=== PATIENT | male | born 1940 | race Caucasian/White ===

== ENCOUNTER → 2016-09-18 | Day surgery (SDC) | payer OTHER ==
[2016-09-08 08:22] VITALS: Ht 165.1 cm; Wt 76.8 kg
[~2016-09-18] VITALS: Ht 165.1 cm; Wt 76.8 kg
[~2016-09-18] MED LIST: ARGI500T3 PO; CHOL1000 PO; COEN90TA PO; CYAN10005 PO; LIDOCAINE HCL 2% 2 ML VIAL (20MG/ML) ONE; MULT-506 PO; PANT40TA PO; PROPOFOL IV EMULSION 10 MG/ML 20 ML VIAL IV ONE; PYRI50TA2 PO; THIA50TA3 PO
--- NOTE | 2016-09-18 12:23 | Endo History and Physical ---
History & Physical Date of Service: Sep 18, 2016. Chief Complaint: Serna's , history of polyps Referring Physician: Dr. Vicki Edgar History of Present Illness For EGD and colonoscopy Past Surgical History Hx Cardiac Surgery: Yes (HEART CATH, NO STENTS) Hx Internal Defibrillator: No Hx Pacemaker: No Hx Abdominal Surgery: Yes (HERNIA REPAIR X3) Hx of Implantable Prosthesis: No Hx Post-Op Nausea and Vomiting: No Hx Cancer Surgery: Yes (LASER FOR PROSTATE) Hx Thoracic Surgery: No Hx Orthopedic: No Hx Urinary Tract Surgery: No Family History Esophogeal CA Social History Smoking Status: Former Smoker Hx Substance Use: No Hx Alcohol Use: No ("A FEW OUNCES OF WINE 3-4 NIGHTS/WEEK") Allergies Coded Allergies: Penicillins (Verified Allergy, Unknown, RASH - HAPPENED A CHILD, ) Current Medications Reported Home Medications Medications Dose Route/Sig Max Daily Dose Days Date Category L-Arginine (Arginine) 500 Mg Tab 1 Tab PO QAM 09/08/16 Reported Multivitamin (Multivitamins) Tab 1 Tab PO QAM 09/08/16 Reported Co Q10 (Coenzyme Q10) 90 Mg Tab 1 Tab PO QAM 09/08/16 Reported Vitamin D3 (Cholecalciferol) 1,000 Unit Tab 1 Tab PO QAM 09/08/16 Reported Vitamin B-6 (Pyridoxine Hcl) 50 Mg Tab 1 Tab PO QAM 09/08/16 Reported Vitamin B-1 (Thiamine HCl) 50 Mg Tab 50 Mg PO QAM 09/08/16 Reported Vitamin B-12 (Cyanocobalamin) 1,000 Mcg Tab 1,000 Mcg PO QAM 09/08/16 Reported Protonix (Pantoprazole Sodium) 40 Mg Tab 40 Mg PO QAM 09/08/16 Reported Vital Signs Weight (Kilograms): 76.82 Height (Feet): 5 Height (Inches): 5 Date Time Temp Pulse Resp B/P (MAP) Pulse Ox O2 Delivery O2 Flow Rate FiO2 09/18/16 12:09 36.6 82 18 154/83 (106) 97 Room Air Physical Exam General Appearance: WD/WN Respiratory/Chest: Respiratory effort: no dyspnea Cardiovascular: Heart Auscultation: RRR Abdomen: Bowel Sounds: pertinent finding (LIH repair) Assessment and Plan Serna's and Hx of polyps for EGD and colonoscopy
--- NOTE | 2016-09-18 12:50 | Discharge Instructions ---
Endoscopy Patient Instructions Date / Procedure(s) Performed Sep 18, 2016. Colonoscopy, EGD Allergy Information Coded Allergies: Penicillins (Verified Allergy, Unknown, RASH - HAPPENED A CHILD, ) Discharge Date / Findings Sep 18, 2016. Serna's, esoph ulcer, diverticulosis, hemorrhoids, cecal ulcer, polyp Medication Instructions Stopped Medication(s): stopped all supplememnts on Wednesday Restart Stopped Medication(s): resume meds Reported Home Medications Medications Dose Route/Sig Max Daily Dose Days Date Category L-Arginine (Arginine) 500 Mg Tab 1 Tab PO QAM 09/08/16 Reported Multivitamin (Multivitamins) Tab 1 Tab PO QAM 09/08/16 Reported Co Q10 (Coenzyme Q10) 90 Mg Tab 1 Tab PO QAM 09/08/16 Reported Vitamin D3 (Cholecalciferol) 1,000 Unit Tab 1 Tab PO QAM 09/08/16 Reported Vitamin B-6 (Pyridoxine Hcl) 50 Mg Tab 1 Tab PO QAM 09/08/16 Reported Vitamin B-1 (Thiamine HCl) 50 Mg Tab 50 Mg PO QAM 09/08/16 Reported Vitamin B-12 (Cyanocobalamin) 1,000 Mcg Tab 1,000 Mcg PO QAM 09/08/16 Reported Protonix (Pantoprazole Sodium) 40 Mg Tab 40 Mg PO QAM 09/08/16 Reported Provider Instructions Activity Restrictions - No exercising or heavy lifting for 24 hours. - Do not drink alcohol the day of the procedure. - Do not drive a car or operate machinery until the day after the procedure. - Do not make any important decisions or sign important papers in 24 hours after the procedure. Following Day: - Return to full activity which may include returning to work/school. Diet Start your diet with liquids and light foods (jello, soup, juice, toast). Then eat your usual diet if not nauseated. Treatment For Common After Affects For mild abdominal pain, bloating, or excessive gas: - Rest - Eat lightly - Lie on right side Follow-Up Information Follow-up with Dr. Vicki Edgar as scheduled Anesthesia Information What You Should Know You have had a procedure that required some medicine to reduce anxiety and discomfort. This treatment is called moderate sedation. After receiving the treatment, you may be sleepy, but you will be able to breathe on your own. The effects of the treatment may last for several hours. Follow these instructions along with Activity/Diet recommendations noted above: * Do NOT do anything where dizziness or clumsiness would be dangerous. * Rest quietly at home today, then you can be up and about tomorrow. * Have a responsible person stay with you the rest of today. * You may have had an I.V. today. If so, you may take the dressing off later today. Recommendations Call your doctor if: * Trouble breathing * Continuous vomiting for more than 24 hours * Temperature above 101 degrees * Severe abdominal pain or bloating * Pain not relieved by pain medicine ordered * There is increased drainage or redness from any incision * A large amount of rectal bleeding greater than 2-3 tablespoons. (If you had a polyp/s removed or have hemorrhoids, a small amount of blood - from the rectum is to be expected.) * You have any unanswered questions or concerns. IN THE EVENT OF A SERIOUS EMERGENCY, GO TO THE NEAREST EMERGENCY ROOM Your discharge instructions were prepared by provider Marcell Dewitt. Patient Instructions Signature Page Killian Gupta Patient (or Guardian) Signature/Date: I have read and understand the instructions given to me by my caregivers. Caregiver/RN/Doctor Signature/Date: The above-named patient and/or guardian has received patient instructions on this date. + Original Patient Signature Page (only) stays with chart. Please make copy for patient.
--- NOTE | 2016-09-18 12:55 | GI REPORT ---
Procedure Date: 09/18/2016 12:23 PM Procedure: Upper GI endoscopy Indications: Follow-up of Serna's esophagus Medicines: Propofol total dose 250 mg IV, Lidocaine 80 mg IV Complications: No immediate complications. Estimated Blood Loss: Estimated blood loss was minimal. Procedure: Pre-Anesthesia Assessment: - Prior to the procedure, a History and Physical was performed, and patient medications, allergies and sensitivities were reviewed. The patient's tolerance of previous anesthesia was reviewed. - The risks and benefits of the procedure and the sedation options and risks were discussed with the patient. All questions were answered and informed consent was obtained. After obtaining informed consent, the endoscope was passed under direct vision. Throughout the procedure, the patient's blood pressure, pulse, and oxygen saturations were monitored continuously. The scope was introduced through the mouth, and advanced to the second part of duodenum. The upper GI endoscopy was accomplished without difficulty. The patient tolerated the procedure well. Findings: One superficial esophageal ulcer with no bleeding and no stigmata of recent bleeding was found. 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 The maximum longitudinal extent of these mucosal changes was 1 cm in length. Mucosa was biopsied with a cold forceps for histology. Estimated blood loss was minimal. The entire examined stomach was normal. The examined duodenum was normal. Impression: - Non-bleeding esophageal ulcer. - Esophageal mucosal changes secondary to established short-segment Serna's disease. Biopsied. - Normal stomach. - Normal examined duodenum. Recommendation: - Discharge patient to home (ambulatory). - Continue present medications. - Await pathology results. - Return to primary care physician PRN. Marcell Dewitt M.D. Marcell Dewitt MD 09/18/2016 12:55:10 PM This report has been signed electronically. Note Initiated On: 09/18/2016 12:23 PM I attest to the content of the Intraoperative Record and orders documented therein, exceptions below
--- NOTE | 2016-09-18 12:58 | GI REPORT ---
Procedure Date: 09/18/2016 12:24 PM Procedure: Colonoscopy Indications: Personal history of colonic polyps Medicines: Propofol total dose 250 mg IV, Lidocaine 80mg IV Complications: No immediate complications. Estimated Blood Loss: Estimated blood loss was minimal. Procedure: Pre-Anesthesia Assessment: - Prior to the procedure, a History and Physical was performed, and patient medications, allergies and sensitivities were reviewed. The patient's tolerance of previous anesthesia was reviewed. - The risks and benefits of the procedure and the sedation options and risks were discussed with the patient. All questions were answered and informed consent was obtained. After I obtained informed consent, the scope was passed under direct vision. Throughout the procedure, the patient's blood pressure, pulse, and oxygen saturations were monitored continuously. The scope was introduced through the anus and advanced to the terminal ileum. The colonoscopy was performed without difficulty. The patient tolerated the procedure well. The quality of the bowel preparation was excellent. Findings: Non-bleeding internal hemorrhoids were found during endoscopy. The hemorrhoids were moderate. Many diverticula were found in the sigmoid colon. A 5 mm polyp was found in the descending colon. The polyp was sessile. The polyp was removed with a cold snare. Resection and retrieval were complete. Estimated blood loss was minimal. A single (solitary) two mm ulcer was found in the cecum. No bleeding was present. The terminal ileum appeared normal. Impression: - Non-bleeding internal hemorrhoids. - Diverticulosis in the sigmoid colon. - One 5 mm polyp in the descending colon, removed with a cold snare. Resected and retrieved. - A single (solitary) ulcer in the cecum. - The examined portion of the ileum was normal. Recommendation: - Discharge patient to home (ambulatory). - Continue present medications. - Await pathology results. - Return to primary care physician PRN. Marcell Dewitt M.D. Marcell Dewitt MD 09/18/2016 12:58:30 PM This report has been signed electronically. Note Initiated On: 09/18/2016 12:24 PM I attest to the content of the Intraoperative Record and orders documented therein, exceptions below
--- NOTE | 2016-09-18 13:07 | Anesthesiology Progress Note ---
Anesthesia Post Op Note Date & Time Sep 18, 2016 at 13:07 Vital Signs Pain Intensity: 0 Vital Signs Past 12 Hours Date Time Temp Pulse Resp B/P (MAP) Pulse Ox O2 Delivery O2 Flow Rate FiO2 09/18/16 12:53 72 16 125/79 (94) 96 Room Air 09/18/16 12:09 36.6 82 18 154/83 (106) 97 Room Air Notes Mental Status: alert / awake / arousable, participated in evaluation Pt Amnestic to Procedure: Yes Nausea / Vomiting: adequately controlled Pain: adequately controlled Airway Patency, RR, SpO2: stable & adequate BP & HR: stable & adequate Hydration State: stable & adequate Anesthetic Complications: no major complications apparent
[2016-09-18 13:23] VITALS: BP 126/81; PULSE 64; O2SAT 97
== END | disposition home or self-care (01) ==
LOC: C.GI 11:37
PROVIDERS: ATTEND Internal Medicine Gastroenterology
DX: K22.70 Barrett's esophagus without dysplasia (principal); D12.4 Benign neoplasm of descending colon; K22.10 Ulcer of esophagus without bleeding; K64.8 Other hemorrhoids; K63.3 Ulcer of intestine; K57.31 Diverticulosis of large intestine without perforation or abscess with bleeding; Z86.010 Personal history of colon polyps; Z87.891 Personal history of nicotine dependence; Z80.0 Family history of malignant neoplasm of digestive organs